=== PATIENT | male | born 1945 | race Caucasian/White ===

== ENCOUNTER 2024-07-09 12:48 | Emergency (ER) | payer MEDICARE, OTHER, SELFPAY ==
--- OUTSIDE RECORDS SUMMARY | 2024-07-09 12:50 | XMS_ITS | Continuity of Care Document ---
Author Name [facility] Organization [facility] Care Team Providers Care Rubber Trimmer Name Role Phone [facility] Unavailable Unavailable Social History Combined list of available smoking, tobacco, and other social history from Department of Defense and Veterans Affairs facilities. Social History Type Response Date Comment Sourc e This section is an empty social history section. DoD
[2024-07-09 13:08] VITALS: BP 138/83; PULSE 85; RESP 16; TEMP 36.3; O2SAT 93
--- NOTE | 2024-07-09 13:13 | ED_ITS ---
HPI - General Adult General Time Seen by Provider: 13:13 Date Seen: 07/09/24 Chief complaint: Arrhythmia/Palpitations Stated complaint: Irreg Heartbeat/Chest Pain Time Seen by Provider: 07/09/24 12:49 Source: patient, family (Daughter with) and RN notes reviewed Mode of arrival: ambulatory Limitations: no limitations History of Present Illness HPI narrative: This patient is brought in by his daughter for concern of irregular heart beat at a preoperative cataract evaluation yesterday. Daughter notes that during pulse check for vitals that his heart rate was really irregular, nurse then listened to his heart and found the same. He was asymptomatic. This am around 4am he reported some chest and back pain. He denies any symptoms currently. He has no prior heart history. He has had UTI history per daughter and she is concerned about this. He has had a history of his potassium and magnesium have been off in the past with a prior UTI and required hospitalization. Related Data Home Medications ?Medication ?Instructions ?Recorded ?Confirmed No Known Home Medications 07/09/24 07/09/24 Allergies Allergy/AdvReac Type Severity Reaction Status Date / Time bee venom protein (honey bee) Allergy Unknown Verified 07/09/24 13:12 Review of Systems Narrative: Patient denies any symptoms right now but do wonder if he is reliable historian due to his underlying dementia. PFSH PFSH Social History How often do you have a drink containing alcohol: never AUDIT-C Alcohol total score: 0 service: Yes Exam Const: Vital Signs, click to edit/add: Vital Signs - 24 hr 07/09/24 13:08 07/09/24 13:36 07/09/24 14:02 Temperature 97.4 F L Pulse Rate 88 Pulse Rate [Pulse Oximeter] 85 Respiratory Rate 16 18 Blood Pressure 148/110 H Blood Pressure [Ri ght Upper Arm] 138/83 Pulse Oximetry 93 98 92 Oxygen Delivery Me thod Room Air Room Air 07/09/24 14:32 Temperature Pulse Rate 97 Pulse Rate [Pulse Oximeter] Respiratory Rate 18 Blood Pressure 115/65 Blood Pressure [Ri ght Upper Arm] Pulse Oximetry 96 Oxygen Delivery Me thod Room Air This 78-year-old male is alert, interactive, conversive. He is very pleasant. Sclera clear, conjugate gaze, symmetrical facial function. Neck is supple, no masses. Patient is able to sit up, lungs are clear, good air entry, wheeze or crackles, no tachypnea. 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 Daughter corroborates that this has been there. CV regular with some ectopy, no murmur, normal S1-S2, no S3-S4. Abdomen is soft, nontender, nondistended, no organomegaly, no rebound or guarding. He has no pitting edema. Patient was ambulatory into the ED of his own accord. Patient has EKG while I am in the room with him, is placed on cardiac monitoring. See EKG report below. Did see a few PVCs on cardiac monitoring. Documenting provider has reviewed patient's vital signs: yes Course Course ED Course: The patient will be monitored on cardiac monitoring and pulse oximetry. Will check electrolytes, get a troponin given he had pain earlier this morning at 4:00 a.m.. Will watch for arrhythmia, insure no acute issues with electrolytes. Reevaluation(s) Time of Reevaluation #1: 15:09 Reevaluation #1: Did discuss findings of the mildly low sodium, elevated proBNP, normal chest x- ray, normal troponin. Electrolytes were otherwise normal. He has no clinical stigmata of congestive heart failure at this time but the sodium and the proBNP could point to that. Chest x-ray is not showing fluid overload, has no significant peripheral edema. His daughter notes that he did have some edema of his legs but they went to compression stockings and that seemed to help. He is not wearing compression stockings at this time that I see. We discussed having him get an outpatient echo. The premature ventricular contractions in of them self are not alarming to us, have seen no couplets, no runs of ventricular tachycardia. Would still consider getting an echo given the other labs for further evaluation but does not appear to need to happen emergently. His cataract surgery is scheduled for July 23, doubtful that these current issues would cause any need to delay that but will defer to his primary care provider. Vital Signs Vital signs: Initial Vital Signs Temperature 97.4 F L 07/09/24 13:08 Temperature Source Temporal Artery Scan 07/09/24 13:08 Pulse Rate 85 07/09/24 13:08 Pulse Rhythm Irregular 07/09/24 13:08 Respiratory Rate 16 07/09/24 13:08 Blood Pressure 138/83 07/09/24 13:08 Blood Pressure Mean 101 07/09/24 13:08 Blood Pressure Position Sitting 07/09/24 13:08 Pulse Oximetry 93 07/09/24 13:08 Oxygen Delivery Method Room Air 07/09/24 13:08 Vital Signs Temperature 97.4 F L 07/09/24 13:08 Pulse Rate 85 07/09/24 13:08 Respiratory Rate 16 07/09/24 13:08 Blood Pressure 138/83 07/09/24 13:08 Pulse Oximetry 93 07/09/24 13:08 Oxygen Delivery Method Room Air 07/09/24 13:08 Temperature 97.4 F L 07/09/24 13:08 Pulse Rate 97 07/09/24 14:32 Respiratory Rate 18 07/09/24 14:32 Blood Pressure 115/65 07/09/24 14:32 Pulse Oximetry 96 07/09/24 14:32 Oxygen Delivery Method Room Air 07/09/24 14:32 Medical Decision Making Medical Records Medical records reviewed: Yes I reviewed the patient's medical records Medical records narrative: Sodium in 2022 was 143 and 144 on 2 separate occasions that I could see. Lab Data Lab results reviewed: Yes I reviewed the patient's lab results Labs: Lab Results 07/09/24 07/09/24 Range/Units 13:41 Unknown WBC 8.85 (4.50-11.00) K/uL RBC 4.63 (4.30-5.90) m/uL Hgb 14.4 (13.5-17.5) gm/dL Hct 42.9 (37.0-53.0) % MCV 93 (80-100) fL MCH 31 (26-34) pg MCHC 34 (32-36) gm/dL RDW Coeff of [place] 13.2 (11.5-15.5) % Plt Count 210 (140-440) K/uL Neut % (Auto) 51.2 (42.0-72.0) % Lymph % (Auto) 33.2 (20-44) % [place] % (Auto) 11.8 H (0.0-11.0) % Eos % (Auto) 3.1 (0.0-7.0) % Baso % (Auto) 0.6 (0.0-3.0) % Neut # (Auto) 4.54 (1.7-7.0) K/uL Lymph # (Auto) 2.94 H (0.90-2.90) K/uL [place] # (Auto) 1.00 H (0.00-0.90) K/UL Eos # (Auto) 0.27 (0.00-0.50) K/uL Baso # (Auto) 0.05 (0.00-0.30) K/uL Abs Immat Gran (auto) 0.01 (0.00-0.30) K/uL Imm/Tot Granulo (auto) 0.1 % Sodium 130 L (135-149) mmol/L Potassium 4.2 (3.6-5.1) mmol/L Chloride 99 (96-114) mmol/L Carbon Dioxide 25 (20-32) mmol/L Anion Gap 6 L (7-15) mEq/L BUN 11 (7-30) mg/dL Creatinine 0.9 (0.5-1.5) mg/dL Estimated GFR 87 ml/min Glucose 61 (60-115) mg/dL Calcium 8.9 (8.4-10.6) mg/dL Magnesium 2.2 (1.5-2.6) mg/dL Troponin I < 0.01 L (0.01-0.04) ng/mL NT-Pro-B Natriuret Pep 1070 pg/mL Urine Color Yellow (Yellow) Urine Appearance Clear (Clear) Urine pH 7.0 (5.0-8.5) Ur Specific [place] 1.015 (1.000-1.030) Urine Protein Negative (Negative) Urine Glucose (UA) Negative (Negative) Urine Ketones Negative (Negative) Urine Blood Negative (Negative) Urine Nitrite Negative (Negative) Urine Bilirubin Negative (Negative) Urine Urobilinogen 0.2 (0.2-1.0) Ur Leukocyte Esterase Trace A (Negative) Urine RBC 0-2 (0-2) Urine WBC 0-2 (0-5) Ur Squamous Epith Cells None (None-Few) Urine Bacteria None (None) Imaging Data Chest x-ray: Attestation: I have reviewed the pertinent imaging results. My impression: I do not appreciate any congestive changes on my preliminary review. Radiologist's impression: [facility]:?[facility] Patient ID:?[id number] Site Patient ID:?[id number]. Site :?[id number] Study:?XRay-Chest 1 VIEW PORTABLE-07/09/2024 2:53:16 PM Ordering Physician:Agustina Ramirez Final Report: INDICATION: Chest pain. TECHNIQUE: Chest 1 portable view. COMPARISON: None. FINDINGS: No pneumothorax or pleural effusion. Lungs are clear. Cardiac and mediastinal contours are within normal limits. Upper abdomen and osseous structures as imaged show no acute abnormality. IMPRESSION: No evidence of acute cardiopulmonary disease. Dictated by Bird Riggs MD @ 07/09/2024 3:07:29 PM (Electronic Signature) ECG Data Attestation: I personally reviewed and interpreted this ECG as follows: (Sinus rhythm with first-degree AV block, 84 beats per minute. PVC seen as well as a PAC. Poor R-wave progression anterior precordial leads without any acute ST segment changes.) Prior ECG tracings: not available for review Discharge Plan Discharge Clinical Impression: Ventricular premature beats Patient Disposition: Home w/ Parent or Adult Condition: Stable Instructions: Premature Ventricular Contractions (ED) Additional Instructions: There is no clinical evidence of congestive heart failure on chest x-ray or on clinical exam. He had premature ventricular contractions noted on his EKG as well as cardiac monitoring while here. His sodium was mildly low, proBNP mildly elevated. I would recommend outpatient echo as further evaluation to look at his heart function; please follow up with his primary care provider as soon as possible to review this and consider having echo scheduled. If you develop concerns about him having fluid overload, edema, difficulty breathing, shortness of breath, do recommend being seen to be evaluated for congestive heart failure. Activity Level: Activity as Tolerated Prescriptions: No Action No Known Home Medications Follow Up/Referrals: Javier Swain MD [Primary Care Provider] - Stand Alone Forms: Homeschool Snowboarding[employer] Info Instructions
[2024-07-09 13:36] VITALS: O2SAT 98
--- OUTSIDE RECORDS SUMMARY | 2024-07-09 13:50 | XMS_ITS | Clinical Summary ---
Author Organization [facility] Address [place], [place] [address] Care Team Providers Care Industrial Roof Plumber Name Role Phone Kimberley Escobedo MD Primary Care Provider Allergies Active Allergy Reactions Criticality Noted Date Comments Amoxicillin-Pot Clavulanate Bee Pollen Venom-Honey Bee Anaphylaxis High 05/19/2023 Metoprolol Bradycardia 09/27/2013 Sulfamethoxazole-Trimethoprim Rash 2013 Medications aspirin enteric coated 81 mg tabletIndicatio ns:myocardial infarction prevention Take 1 tablet by mouth once daily with a meal. 0 4 Active EPINEPHrine (EPIPEN) 0.3 mg/0.3 mL injectionIndica tions:anaphylax is Inject 0.3 mg intramuscular one time if needed for Allergic Reaction. 2 Each 1 8 Active thiamine (VITAMIN B1) 100 mg tabletIndicatio ns:Confusion Take 1 Tablet (100 mg) by mouth once daily. 0 3 Active ketoconazole 2 % creamIndication s:Intertriginou s candidiasis Apply topically to affected area(s) two times daily. 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 Colonoscopy 06/25, next due 06/26 Immunizations Name Administration Dates Next Due Influenza, High-dose Inactivated 04/19/2016 Influenza, Inactivated AIIV4 (Age 65+ Years) Preserv Free 05/20/2023 Influenza, Inactivated IIV3 (Age 65+ Years) Preserv Free 06/05/2017 Pneumococcal Conj 20-valent (Prevnar 20) 024 Pneumococcal Poly,23-Valent (Pneumovax) 07/24/19 10 Pneumococcal conj 13-Valent (Prevnar 13) 016 Tdap 07/24/2009 Family History Medical History Relation Name Comments Heart Disease Father Stroke Mother Relation Name Status Comments Father Mother Social History Tobacco Use Types Packs/Day Years Used Date Smoking Tobacco: Former Cigarettes 2 20 1 08/10/1972 - 06/09/1993 Smokeless Tobacco: Never Tobacco Cessation:Counseling Given: Yes Alcohol Use Standard Drinks/Week Comments Not Currently 69 (1 standard drink = 0.6 oz pure alcohol) 8-10 beers daily previous. Drinking Non-Alcoholic beer now, noted 09/12/23 Social Connections Answer Date Recorded Do you often feel lonely or isolated from those around you? 4 05/19/2023 Financial Resource Strain Answer Date R ecorded Difficulty of Paying Living Expenses 3 05/19/2023 Difficulty of Paying Living Expenses Not on file 05/19/2023 Food Insecurity Answer Date Recorded Do you worry your food will run out before you are able to buy more? 1 05/19/2023 Transportation Needs Answer Date Record ed Does lack of transportation keep you from medica l appointments? 1 05/19/2023 Does lack of transportation keep you from work, meetings or getting things that you need? 1 05/19/2023 Housing Stability Answer Date Recorded What is your housing situation today? 1 05/19/2023 Sex and Gender Information Value Date Recorded Sex Assigned at Not on file Legal Sex Male 5:24 AM SAS PROGRAMMER Gender Identity Not on file Sexual Orientation Not on file Occupation Industry Job Start Date Job End Date retired Not on file Not on file Not on file Obstetrics History Last Filed Vital Signs Vital Sign Reading Time Taken Comments Blood Pressure 149/82 02/02/2024 12:54 PM CDT Pulse 66 02/02/2024 12:54 PM CDT Temperature 36.4 C (97.5 F) 05/26/2023 9:07 AM SAS PROGRAMMER Respiratory Rate 16 05/26/2023 9:07 AM SAS PROGRAMMER Oxygen Saturation 98% 02/02/2024 12:54 PM CDT Inhaled Oxygen Concentration - - Weight 81.6 kg (180 lb) 02/02/2024 12:54 PM CDT Height 172.7 cm (5' 8) 05/19/2023 6:37 PM SAS PROGRAMMER Body Mass Index 27.37 05/19/2023 6:37 PM SAS PROGRAMMER Plan of Treatment Health Maintenance Due Date Last Done Comments Hepatitis C screening for ag e 18-79 1962 Zoster (shingles) series for age 50+ (1 of 2) 1994 Medicare Wellness for age 65+ 2009 Depression screening for age 12+ 06/05/2018 06/05/20 17, 10/02/2015 BMI (ht and wt on same day) for age 18+ 07/24/2018 07/24/2017, 06/05/2017, 04/19/2016, Additional history exists Tetanus booster 07/24/2019 07/24/2009, 07/24/2009 RSV vaccine for adults or (1 - 1-dose 75+ series) 11/14/2019 COVID-19 vaccine series ( season) 2024 09/05/2020, 08/15/2020 Influenza for age 65+ 02/18/2024 05/20/2023 , 06/05/2017, 04/19/2016 Tdap Completed 07/24/2009 Pneumococcal series for age 50+ Completed 07/07/2023, 10/02/2015, 07/24/2009 Goals Goal Patient Goal Type Associated Problems Recent Progress Patient-Stated? Author BLOOD PRESSURE - MAINTAINS BP less than 140/90 Blood Pressure No Javier Swain MD Insurance FOR LIFE MEDICARE PB ONLY MEDICARE PART B HB ONLY MEDICARE PART A HB ONLY Advance Directives Documents on File Type Date Recorded Patient Dietetic Technician Registered Expl anation POLST 05/24/2023 * DNR (Latest Code Status on File) Date Activated Date Inactivated Comments 05/24/2023 11:14 AM 05/26/2023 1:39 PM Question Answer Comments Code Status Discussion: Reviewed Preferences * Full Code Date Activated Date Inactivated Comments 05/18/2023 10:45 PM 05/24/2023 11:14 AM Question Answer Comments Code Status Discussion: Reviewed Preferences Care Teams Industrial Roof Plumber Relationship Specialty Start Date End Date Kimberley Escobedo MD [address] [place] [address] PCP - General Family Practice 07/07/23
--- OUTSIDE RECORDS SUMMARY | 2024-07-09 13:50 | XMS_ITS | Continuity of Care Document ---
Author Name [facility] Organization [facility] Care Team Providers Care Bottom Precipitator Operator Name Role Phone [facility] Unavailable Unavailable Social History Combined list of available smoking, tobacco, and other social history from Department of Defense and Veterans Affairs facilities. Social History Type Response Date Comment Sourc e This section is an empty social history section. DoD
[2024-07-09 13:51] LABS: Basophils Absolute Auto 0.05 K/uL (0.00-0.30); Basophils Percent Auto 0.6 % (0.0-3.0); Eosinophils Absolute Auto 0.27 K/uL (0.00-0.50); Eosinophils Percent Auto 3.1 % (0.0-7.0); Hematocrit 42.9 % (37.0-53.0); Hemoglobin* 14.4 gm/dL (13.5-17.5); Immature Granulocytes Abs Auto 0.01 K/uL (0.00-0.30); Immature Granulocytes Pct Auto 0.1 %; Lymphocytes Absolute Auto 2.94 K/uL (0.90-2.90); Lymphocytes Percent Auto 33.2 % (20-44); Mean Corpuscular HGB Conc 34 gm/dL (32-36); Mean Corpuscular Hemoglobin 31 pg (26-34); Mean Corpuscular Volume 93 fL (80-100); Monocytes Percent Auto 11.8 % (0.0-11.0); Neutrophils Absolute Auto 4.54 K/uL (1.7-7.0); Neutrophils Percent Auto 51.2 % (42.0-72.0); Platelet Count* 210 K/uL (140-440); RDW Coefficient of Variation % 13.2 % (11.5-15.5); Red Blood Count 4.63 m/uL (4.30-5.90); White Blood Count* 8.85 K/uL (4.50-11.00)
[2024-07-09 13:55] LABS: Slide Review Reflex No
[2024-07-09 14:02] VITALS: BP 148/110; PULSE 88; RESP 18; O2SAT 92
[2024-07-09 14:12] LABS: Chloride* 99 mmol/L (96-114); Potassium* 4.2 mmol/L (3.6-5.1); Sodium* 130 mmol/L (135-149)
[2024-07-09 14:15] LABS: Anion Gap 6 mEq/L (7-15); Blood Urea Nitrogen* 11 mg/dL (7-30); Carbon Dioxide* 25 mmol/L (20-32); Creatinine* 0.9 mg/dL (0.5-1.5); Estimated Glomerular Filt Rate 87 ml/min; Glucose* 61 mg/dL (60-115)
[2024-07-09 14:16] LABS: Calcium* 8.9 mg/dL (8.4-10.6); Magnesium* 2.2 mg/dL (1.5-2.6)
[2024-07-09 14:18] LABS: Appearance Urine Clear (Clear); Bilirubin Urine Negative (Negative); Blood Urine Negative (Negative); Color Urine Yellow (Yellow); Glucose Urine Negative (Negative); Ketones Urine Negative (Negative); Leukocyte Esterase Urine Trace (Negative); Nitrite Urine Negative (Negative); Protein Urine Negative (Negative); Specific Gravity Urine 1.015 (1.000-1.030); Urobilinogen Urine 0.2 (0.2-1.0)
[2024-07-09 14:26] LABS: NT Pro B Type NatriureticPept* 1070 pg/mL
[2024-07-09 14:28] LABS: Troponin I* < 0.01 ng/mL (0.01-0.04)
--- NOTE | 2024-07-09 14:30 | CRLHL7_ITS ---
For Patients: As a result of the Century Cures Act, medical imaging exams and procedure reports are released immediately into your electronic medical record. You may view this report before your referring provider. If you have questions, please contact your health care provider. INDICATION: Chest pain. TECHNIQUE: Chest 1 portable view. COMPARISON: None. FINDINGS: No pneumothorax or pleural effusion. Lungs are clear. Cardiac and mediastinal contours are within normal limits. Upper abdomen and osseous structures as imaged show no acute abnormality. IMPRESSION: No evidence of acute cardiopulmonary disease. Dictated by Bird Riggs MD @ 07/09/2024 3:07:29 PM (Electronically Signed)
[2024-07-09 14:32] VITALS: BP 115/65; PULSE 97; RESP 18; O2SAT 96
[2024-07-09 14:46] LABS: RBC Urine 0-2 (0-2); WBC Urine 0-2 (0-5)
[2024-07-09 15:03] VITALS: BP 141/86; PULSE 93; RESP 18; O2SAT 90
== END 2024-07-09 15:39 | disposition home or self-care (01) ==
PROVIDERS: Emergency Provider Family Medicine; PCP Family Medicine
DX: I49.3 Ventricular premature depolarization (principal)
CPT/HCPCS: 36415; 71045; 80048; 81001; 83735; 83880; 84484; 85025; 87086; 93005; 94761; 99284